=== PATIENT | female | born 1975 | race Caucasian/White ===

== ENCOUNTER 2017-01-31 09:47 | Emergency (ER) | payer BC ==
[2017-01-31 09:55] VITALS: BP 109/70
--- NOTE | 2017-01-31 11:26 | ER Document Report ---
ED ENT - General Chief Complaint: Nasal Drainage Stated Complaint: NASAL DRAINAGE Mode of Arrival: Ambulatory Information source: Patient TRAVEL OUTSIDE OF THE [place] IN LAST 30 DAYS: No - HPI Onset: Last week Onset/Duration: Gradual Severity: None Pain Level: 0 Context: Allergies Associated symptoms: denies: Dizziness, Fever, Headache, Sinus drainage - CLEAR WATERY DRAINAGE FROM RIGHT NOSTRIL WHEN HEAD IS ROTATED IN SAGITTAL PLANE MORE THAN 90 DEGREES FROM VERTICAL Similar symptoms previously: No Recently seen / treated by doctor: No - Related Data Allergies/Adverse Reactions: No Known Allergies Allergy (Verified 01/31/17 10:02) Past Medical History - General Information source: Patient - Social History Smoking Status: Never Smoker Cigarette use (# per day): No Chew tobacco use (# tins/day): No Frequency of alcohol use: None Drug Abuse: None Lives with: Spouse/Significant other Family History: Reviewed & Not Pertinent Patient has suicidal ideation: No Patient has homicidal ideation: No - Past Medical History Cardiac Medical History: Denies: Hx Heart Attack, Hx Hypertension - NERVES Pulmonary Medical History: Denies: Hx Asthma EENT Medical History: Reports: Ears - HEARING IMPAIRED, READS LIPS, Nose - FREQUENT RECURRENT SINUSITIS, PRIOR TO SURG. Neurological Medical History: Denies: Hx Cerebrovascular Accident, Hx Seizures Endocrine Medical History: Reports: None Renal/ Medical History: Reports: None. Denies: Hx Peritoneal Dialysis Malignancy Medical History: Reports: None GI Medical History: Reports: None. Denies: Hx Hepatitis, Hx Hiatal Hernia, Hx Ulcer Psychiatric Medical History: Reports: None Infectious Medical History: Denies: Hx Hepatitis Past Surgical History: Reports: Hx Nose Surgery - 2015. Denies: Hx Hysterectomy, Hx Mastectomy, Hx Open Heart Surgery, Hx Pacemaker Review of Systems - Review of Systems Constitutional: No symptoms reported. denies: Chills, Diaphoresis, Fever EENT: See HPI Cardiovascular: No symptoms reported Respiratory: No symptoms reported Gastrointestinal: No symptoms reported Genitourinary: No symptoms reported Female Genitourinary: No symptoms reported Musculoskeletal: No symptoms reported Skin: No symptoms reported Neurological/Psychological: No symptoms reported. denies: Headaches Physical Exam - Vital signs Vitals: Temp Pulse Resp BP Pulse Ox 98.2 F 75 14 109/70 100 01/31/17 09:54 01/31/17 09:54 01/31/17 09:54 01/31/17 09:54 01/31/17 09:54 Interpretation: Normal - General General appearance: Appears well, Alert In distress: None - HEENT Head: Normocephalic Eyes: Normal Conjunctiva: Normal Nasal: Normal, Other - NO INTRA-NASAL LESIONS OR MASSES. No: Septal hematoma, Swelling - Respiratory Respiratory status: No respiratory distress - Cardiovascular Rhythm: Regular - Extremities General upper extremity: Normal inspection General lower extremity: Normal inspection - Neurological Neuro grossly intact: Yes Cognition: Normal Orientation: AAOx4 - Psychological Associated symptoms: Normal affect, Normal mood - Skin Skin Temperature: Warm Skin Moisture: Dry Skin Color: Normal Skin Turgor: Elastic Course - Vital Signs Vital signs: Temp Pulse Resp BP Pulse Ox 98.2 F 75 14 109/70 100 01/31/17 09:54 01/31/17 09:54 01/31/17 09:54 01/31/17 09:54 01/31/17 09:54 Discharge - Discharge Clinical Impression: Allergic rhinosinusitis Qualifiers: Allergic rhinitis trigger: unspecified Allergic rhinitis seasonality: seasonal Qualified Code(s): J30.2 - Other seasonal allergic rhinitis Condition: Stable Disposition: HOME, SELF-CARE Instructions: Corticosteroid Inhaler ([facility]) Additional Instructions: CONTINUE USING FLONASE. AVOID FORCEFUL COUGHING OR SNEEZING. RETURN TO E.R. OR FOLLOW UP WITH YOUR E.N.T. DOCTOR IF ANY FEVER, SEVERE HEADACHE, CHANGE IN COLOR OR DRAMATIC INCREASE I THE AMOUNT OF DRAINAGE.
== END 2017-01-31 12:43 | disposition home or self-care (01) ==
LOC: ER 09:47
DX: J30.2 Other seasonal allergic rhinitis (principal); Z98.890 Other specified postprocedural states
CPT/HCPCS: 99283

== ENCOUNTER 2017-09-03 17:46 | Emergency (ER) | payer BC ==
--- NOTE | 2017-09-03 20:01 | ER Document Report ---
ED Extremity Problem, Lower - General Chief Complaint: Leg Injury Stated Complaint: LEG PAIN Time Seen by Provider: 09/03/17 18:14 Mode of Arrival: Ambulatory Information source: Patient Notes: Patient states that she noticed yesterday she has pain on the medial aspect of her right calf. She states this started spontaneously. She does not know of any trauma. The pain is constant and moderate. It is sharp. It radiates to the right leg. It is worse with movement and better with rest. She denies any other rashes or fevers. TRAVEL OUTSIDE OF THE [place] IN LAST 30 DAYS: No - Related Data Allergies/Adverse Reactions: No Known Allergies Allergy (Verified 09/03/17 18:01) Past Medical History - General Information source: Patient - Social History Smoking Status: Never Smoker Frequency of alcohol use: None Family History: Reviewed & Not Pertinent Patient has suicidal ideation: No Patient has homicidal ideation: No - Past Medical History Cardiac Medical History: Denies: Hx Heart Attack, Hx Hypertension - NERVES Pulmonary Medical History: Denies: Hx Asthma Neurological Medical History: Denies: Hx Cerebrovascular Accident, Hx Seizures Renal/ Medical History: Denies: Hx Peritoneal Dialysis GI Medical History: Denies: Hx Hepatitis, Hx Hiatal Hernia, Hx Ulcer Infectious Medical History: Denies: Hx Hepatitis Past Surgical History: Reports: Hx Nose Surgery - 2015. Denies: Hx Hysterectomy, Hx Mastectomy, Hx Open Heart Surgery, Hx Pacemaker Review of Systems - Review of Systems Constitutional: denies: Chills, Fever Cardiovascular: denies: Chest pain, Palpitations Respiratory: denies: Cough, Short of breath -: Yes All other systems reviewed and negative Physical Exam - Vital signs Vitals: Temp Pulse Resp BP Pulse Ox 98.5 F 95 16 129/76 H 100 09/03/17 18:02 09/03/17 18:02 09/03/17 18:02 09/03/17 18:02 09/03/17 18:02 Interpretation: Hypertensive - General General appearance: Appears well, Alert - HEENT Head: Normocephalic, Atraumatic Eyes: Normal Pupils: PERRL - Respiratory Respiratory status: No respiratory distress Chest status: Nontender Breath sounds: Normal Chest palpation: Normal - Cardiovascular Rhythm: Regular Heart sounds: Normal auscultation Murmur: No - Abdominal Inspection: Normal Distension: No distension Bowel sounds: Normal Tenderness: Nontender Organomegaly: No organomegaly - Back Back: Normal, Nontender - Extremities General upper extremity: Normal inspection, Nontender, Normal color, Normal ROM , Normal temperature General lower extremity: Tender, Normal ROM, Normal temperature, Normal weight bearing, Other - There is a small area of tenderness on the patient's right calf on the superior medial aspect. Otherwise exam is unremarkable.. No: Sondra 's sign - Neurological Neuro grossly intact: Yes Cognition: Normal Orientation: AAOx4 Gracie Coma Scale Eye Opening: Spontaneous [place] Coma Scale Verbal: Oriented Gracie Coma Scale Motor: Obeys Commands Gracie Coma Scale Total: 15 Speech: Normal Motor strength normal: LUE, RUE, LLE, RLE Sensory: Normal - Psychological Associated symptoms: Normal affect, Normal mood - Skin Skin Temperature: Warm Skin Moisture: Dry Skin Color: Normal Course - Vital Signs Vital signs: Temp Pulse Resp BP Pulse Ox 98.5 F 95 16 129/76 H 100 09/03/17 18:02 09/03/17 18:02 09/03/17 18:02 09/03/17 18:02 09/03/17 18:02 - Diagnostic Test Radiology reviewed: Image reviewed, Reports reviewed - Doppler exam shows no evidence of DVT. There is evidence of a superficial thrombophlebitis. Discharge - Discharge Clinical Impression: Superficial thrombophlebitis Qualifiers: Superficial thrombophlebitis-Involved body area: lower extremity Laterality: right Qualified Code(s): I80.01 - Phlebitis and thrombophlebitis of superficial vessels of right lower extremity Condition: Stable Disposition: HOME, SELF-CARE Instructions: Superficial Phlebitis ([facility]) Additional Instructions: Please call your primary care doctor first thing in the morning to arrange follow-up. Your blood pressure is mildly elevated. Please have this checked within 1 week by your doctor. Use aspirin daily and an [place] wrap to control your symptoms. Forms: Elevated Blood Pressure, Return to Work Referrals: MACIEJ SEGOVIA MD [COMMUNITY BASED STAFF] - Follow up as needed
--- NOTE | 2017-09-03 20:20 | RADIOLOGY REPORT (SQ) ---
EXAM DESCRIPTION: VENOUS UNILATERAL LOWER COMPLETED DATE/TIME: 09/03/2017 8:06 pm REASON FOR STUDY: right leg pain COMPARISON: None. TECHNIQUE: Dynamic and static leger scale and color images acquired of the right leg venous system. S elected spectral images acquired with additional compression and augmentation maneuvers. The contrala teral common femoral vein and saphenofemoral junction were also imaged. Images stored on PACS. LIMITATIONS: None. FINDINGS: COMMON FEMORAL: Normal phasicity, compression and augmentation. No visualized echogenic ma terial on leger scale. No defects on color images. FEMORAL: Normal compression and augmentation. No visualized echogenic material on leger scale. No defe cts on color images. POPLITEAL: Normal compression, augmentation. No visualized echogenic material on leger scale. No defec ts on color images. CALF VESSELS: Normal compression, augmentation. No visualized echogenic material on leger scale. No de fects on color images. GSV and SSV: Intraluminal thrombus is identified in the greater saphenous vein at the level of the mi d calf with an associated thrombosed varicose vein. ANY DEEP VENOUS INSUFFICIENCY: Not evaluated. ANY EVIDENCE OF POPLITEAL CYST: No. OTHER: No other significant finding. CONTRALATERAL COMMON FEMORAL VEIN AND SAPHENOFEMORAL JUNCTION: Normal phasicity, compression and augmentation. No visualized echogenic material on leger scale. No de fects on color images. IMPRESSION: No evidence for deep venous thrombosis in the right lower extremity. Intraluminal throm bus is identified in the greater saphenous vein at the level of the mid calf with an associated throm bosed varicose vein. TECHNICAL DOCUMENTATION: JOB ID: [id number] [employer]- All Rights Reserved
[2017-09-03 20:28] VITALS: BP 114/77
== END 2017-09-03 20:40 | disposition home or self-care (01) ==
LOC: ER 17:46
DX: I80.01 Phlebitis and thrombophlebitis of superficial vessels of right lower extremity (principal); M79.661 Pain in right lower leg
CPT/HCPCS: 93971; 99283

== ENCOUNTER 2018-07-11 07:16 | Emergency (ER) | payer BC, MEDICARE ==
[2018-07-11] MEDS ORDERED: LIDOCAINE 5% (700 MG) TRANSDERMAL ADH..PATCH TP PRN (09:45)
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
[2018-07-11] MEDS ORDERED: OXYCODONE-ACETAMINOPHEN 5-325 MG TABLET PO ONE (10:30)
--- NOTE | 2018-07-11 10:42 | RADIOLOGY REPORT (SQ) ---
EXAM DESCRIPTION: CHEST 2 VIEWS COMPLETED DATE/TIME: 07/11/2018 10:35 am REASON FOR STUDY: LOWER THORACIC BACK PAIN, PAIN WITH INSPIRATION COMPARISON: None. EXAM PARAMETERS: NUMBER OF VIEWS: two views TECHNIQUE: Digital Frontal and Lateral radiographic views of the chest acquired. RADIATION DOSE: NA LIMITATIONS: none FINDINGS: LUNGS AND PLEURA: No opacities, masses or pneumothorax. No pleural effusion. MEDIASTINUM AND HILAR STRUCTURES: No masses or contour abnormalities. HEART AND VASCULAR STRUCTURES: Heart normal size. No evidence for failure. BONES: No acute findings. No acute displaced rib fracture or thoracic spine compression deformity HARDWARE: None in the chest. OTHER: No other significant finding. IMPRESSION: NO ACUTE RADIOGRAPHIC FINDING IN THE CHEST. TECHNICAL DOCUMENTATION: JOB ID: [id number] [employer]- All Rights Reserved Reading location - IP/workstation name: [email or web address]
--- NOTE | 2018-07-11 10:43 | RADIOLOGY REPORT (SQ) ---
EXAM DESCRIPTION: T SPINE AP/LAT COMPLETED DATE/TIME: 07/11/2018 10:35 am REASON FOR STUDY: LOWER THORACIC BACK PAIN, PAIN WITH INSPIRATION COMPARISON: Thoracic spine two views 12/03/2014 Two-view chest same date NUMBER OF VIEWS: Two views. TECHNIQUE: AP and lateral radiographic images acquired of the thoracic spine. LIMITATIONS: None. FINDINGS: MINERALIZATION: Normal. ALIGNMENT: Normal. No scoliosis. VERTEBRAE: No fracture or bone lesion. Maintained height, normal segmentation. DISCS: No significant loss of height or significant narrowing. No large osteophytes. HARDWARE: None in the spine. MEDIASTINUM AND SOFT TISSUES: Normal heart size and aortic contour. No soft tissue abnormality. VISUALIZED LUNG JOHNSON: Clear. OTHER: No other significant finding. IMPRESSION: NO SIGNIFICANT RADIOGRAPHIC FINDING IN THE THORACIC SPINE. TECHNICAL DOCUMENTATION: JOB ID: [id number] [employer]- All Rights Reserved Reading location - IP/workstation name: [email or web address]
[2018-07-11 11:22] LABS: APPEARANCE,URINE CLEAR; BILIRUBIN,URINE NEGATIVE (NEGATIVE); COLOR,URINE STRAW; GLUCOSE, URINE NEGATIVE (NEGATIVE); KETONES,URINE NEGATIVE (NEGATIVE); PROTEIN,URINE NEGATIVE (NEGATIVE); URINE SPECIFIC GRAVITY 1.006; UROBILINOGEN,URINE NEGATIVE mg/dL (<2.0)
[2018-07-11 11:23] LABS: ADD MANUAL MICROSCOPIC YES; LEUKOCYTE ESTERASE,URINE NEGATIVE (NEGATIVE); NITRITE,URINE NEGATIVE (NEGATIVE)
[2018-07-11 11:49] VITALS: BP 107/63
--- NOTE | 2018-07-11 12:45 | EKG REPORT ---
SEVERITY:- NORMAL ECG - SINUS RHYTHM : Confirmed by: Ezekiel Avila MD 11-Jul-2018 12:44:31
== END 2018-07-11 11:46 | disposition home or self-care (01) ==
LOC: ER 07:16
DX: M54.6 Pain in thoracic spine (principal)
CPT/HCPCS: 71046; 72070; 81001; 93005; 93010; 99284

== ENCOUNTER 2019-03-18 14:07 | Outpatient (CLI) | payer BC, MEDICARE ==
[~2019-03-18 14:07] MED LIST: ACETAMINOPHEN 325 MG TABLET PO PRN; DIPHENHYDRAMINE HCL 25 MG CAPSULE PO PRN; FUROSEMIDE INJ/PF 20 MG/2 ML SDV IV PRN
[2019-03-18 14:36] LABS: HEMATOCRIT 21.5 % (36.0-47.0); MEAN CORPUSCULAR VOLUME 67 fl (80-97); PLATELET COUNT 241 10^3/uL (150-450); RED BLOOD COUNT 3.22 10^6/uL (3.72-5.28); RED CELL DISTRIBUTION WIDTH 23.5 % (11.5-14.0); WHITE BLOOD COUNT 5.8 10^3/uL (4.0-10.5)
[2019-03-18 14:39] LABS: HEMOGLOBIN 6.4 g/dL (12.0-15.5)
[2019-03-18] MEDS ORDERED: NORMAL SALINE 250 ML IV PRN (15:00)
[2019-03-18 23:10] VITALS: BP 113/72
[2019-03-19 00:36] LABS: HEMATOCRIT 28.5 % (36.0-47.0); MEAN CORPUSCULAR HEMOGLOBIN 22.8 pg (27.0-33.4); MEAN CORPUSCULAR HGB CONC 31.2 g/dL (32.0-36.0); PLATELET COUNT 221 10^3/uL (150-450); RED BLOOD COUNT 3.91 10^6/uL (3.72-5.28); RED CELL DISTRIBUTION WIDTH 25.7 % (11.5-14.0); WHITE BLOOD COUNT 6.3 10^3/uL (4.0-10.5)
[2019-03-19 00:50] LABS: HEMOGLOBIN 8.9 g/dL (12.0-15.5); MEAN CORPUSCULAR VOLUME 73 fl (80-97)
== END 2019-03-19 00:20 | disposition home or self-care (01) ==
LOC: II 14:07 → 2S 14:10 → II 03-19 00:20
PROVIDERS: ATTEND Internal Medicine Medical Oncology
PROC: 30233N1 Transfusion of Nonautologous Red Blood Cells into Peripheral Vein, Percutaneous Approach (ICD-10-PCS; principal; 2019-03-18)
DX: D64.9 Anemia, unspecified (principal)
CPT/HCPCS: 86900; 86901; 36415; 36430; 86850; 85027; 86920; P9016; J7050